=== PATIENT | male | born 1970 | race Two or more races ===

== ENCOUNTER 2019-04-21 23:17 | Emergency (ER) | payer BC ==
[~2019-04-21] VITALS: Ht 188 cm; Wt 94.8 kg
[2019-04-21] MEDS ORDERED: ZOCOR40 MG (23:37)
[2019-04-22] MEDS ORDERED: ULTRACET PO (01:01)
[2019-04-22] MEDS ORDERED: CLEOCIN HCL300 MG PO (01:01)
== END 2019-04-22 01:20 | disposition home or self-care (01) ==
LOC: ER 23:17
DX: K08.89 Other specified disorders of teeth and supporting structures (principal)